=== PATIENT | female | born 1945 | race Caucasian/White ===

== ENCOUNTER → 2018-02-22 12:02 | Outpatient (CLI) | payer MEDICARE, SELFPAY ==
--- NOTE | 2018-02-22 | FLU_PTH ---
PATIENT: ANTONIO MALLORY LOC: CO U#:[id number] AGE/SX: 79/F ROOM: RE02/22/[address]: ABBEY Bajwa : 1945 BED: DIS: SPEC #: [id number] RECD: 02/22/18 16:00 STATUS: NICOLAS REQ #: [id number] TRU: 02/22/18 00:[address]: Trang Belcher NP DEPT: CYTOLOGY RECD BY: Adelaida Barajas ENTERED: 02/23/18 08:23 SP TYPE: Fluid OTHR DR: JR Sears Tissues: Urine Procedures: Pap Stain (control) Special Stain Group II Surgery Specimen Level IV Cytospin Fluid Comments: @ Originally on account #[id number] Req #[id number] HEADER OPERATION: Not noted PRE-OP DIAGNOSIS: Hematuria TISSUE SUBMITTED: Urine for cytology DIAGNOSIS CYTOLOGY Urine for cytology (cytospin): Atypical urothelial cells noted, suspicious for malignancy. SJ:pat 02/24/18 COMMENT Clinical correlation and appropriate follow up are necessary. Please make reference to previous specimen ([id number]) bladder tissue, biopsy with diagnosis of fragment of urothelial mucosa with focal epithelial hyperplasia and trigone, biopsy with diagnosis of fragment of urothelial mucosa with chronic inflammation and changes consistent with cystitis, cystica glandularis and focal calcification and focal epithelial hyperplasia. Case has been reviewed in consultation with Dr. Currie who concurs with the above diagnosis. IDC:AM CYTOLOGY STUDY Slides are reviewed. CYTOLOGY GROSS Received is 70 ml of isaías cloudy fluid labeled with the patient's name and and designated per the requisition as urine. Submitted for cytology preparation. /LAMINE:harley 02/23/18 TC:5 CPT: 56324
--- NOTE | 2018-02-22 12:07 | CT_ITS ---
STUDY: CT ABDOMEN AND PELVIS WITHOUT CONTRAST REASON FOR EXAM: Female, 72 years old. Right lower abdomen and right flank pain x2 weeks. History of stones. Prior appendectomy, cholecystectomy and BETTY/BSO. RADIATION DOSAGE (If Supplied By Facility): CTDIvol = ( 23.08 ) mGy, DLP = ( 1141.77 ) mGycm TECHNIQUE: Transaxial images were obtained from the dome of the diaphragm to the symphysis pubis without oral contrast, and without intravenous contrast. Sagittal and coronal images were reconstructed. Individualized dose optimization techniques were used for this CT. COMPARISON: None. FINDINGS: The visualized lung bases are unremarkable. The visualized portions of the heart are within normal limits. Diffuse fatty infiltration of the liver. Postsurgical absence of the gallbladder. Normal spleen. Normal pancreas. Normal bilateral adrenal glands. Right kidney: 8.3 mm nonobstructing stone in lower pole. 2 mm nonobstructing stones numbering approximately 5. 5 mm linear nonobstructing calculus in the lower pole. Left kidney: 8 mm stone in the left renal pelvis mild haziness of the fat around the left renal pelvis. 8mm at least 7 nonobstructing calculi in the left kidney. They are approximately 2 mm in diameter. Normal visualized stomach. Normal small intestine. Normal colon. The appendix is not visualized due to postsurgical absence. Normal abdominal aorta. Normal inferior vena cava. Normal retroperitoneum. Normal urinary bladder. Normal abdominal wall. T10 benign vertebral body hemangioma. Pronounced L5-S1 disc space height narrowing and mild disc space height narrowing at L3-L4 and L4-L5 disc space levels. No acute osseous abnormality. CT/Abdomen/Pelvis without Cont IMPRESSION: 1. 8 mm stone in the left renal pelvis without hydronephrosis. There is, however, mild haziness of the fat around the left renal pelvis. 2. Multiple nonobstructing calculi in both kidneys. The dominant calculus in the right kidney measures 8.3 mm and is located in the lower pole. The dominant stone in the left kidney is in the left renal pelvis. All the other stones in the left kidney are approximately 2 mm in size. 3. T10 benign vertebral body hemangioma. 4. Pronounced L5-S1 disc space height narrowing and mild disc space narrowing of L3-L4 and L4-L5 disc space levels. Electronically Signed: Nadeem Aguilar MD at 12:39 EDT , Service support ,
[2018-02-22 18:02] LABS: Cytology, Body Fluid / CSF SEE PATHOLOGY REPORT
== END ==
PROVIDERS: Family Provider Physician Assistant; PCP Physician Assistant; Visit Provider Nurse Practitioner Adult Health
DX: N20.0 Calculus of kidney (principal); R31.9 Hematuria, unspecified
CPT/HCPCS: 74176; 88108; 88305; 88313

== ENCOUNTER 2018-03-23 12:48 | Day surgery (SDC) | payer MEDICARE, SELFPAY ==
[2018-03-23 13:30] VITALS: BP 150/91; PULSE 74; RESP 16; TEMP 36.8; O2SAT 97; BMI 33.4
[2018-03-23 13:41] LABS: Bedside Glucose 94 mg/dL (70-110)
[2018-03-23] MEDS: Cefazolin 2 GM in 0.9% Normal Saline 100 ML IV (16:33)
--- NOTE | 2018-03-23 17:28 | PCM.DC.URO ---
Discharge Diet: Light diet - advance as tolerated Discharge Activity: Return to Normal Activity Call your doctor if your incision/area has: Continuous Slow Oozing, Sudden Increased Bleeding, Increased Pain/ Swelling, Increased Redness, Foul Smelling Discharge, Swelling at the incision site Allergies/Adverse Reactions: Allergies propoxyphene [From Darvon] Allergy (Verified 03/16/18 09:42) Swelling Sulfa (Sulfonamide Antibiotics) Allergy (Verified 03/16/18 09:42) Swelling Medications to take at Discharge Acetaminophen [Tylenol Extra Strength] 500 - 1,000 mg PO Q6H PRN PRN 03/10/17 Apixaban [Eliquis] 5 mg PO BID 03/10/17 Glipizide [Glucotrol Xl] 10 mg PO QHS 03/10/17 Hydrochlorothiazide 25 mg PO DAILY 03/10/17 Lactose-Reduced Food [Protein Nutritional Shake] 414 ml PO PRN PRN 03/10/17 Lutein 6 mg PO DAILY 03/10/17 Multivit with Calcium,Iron,Min [Multiple Vitamins For Women] 1 each PO DAILY 03/10/17 Insulin Glargine [Lantus (BKC)] 15 units SC QHS 03/16/18 Losartan Potassium [Cozaar] 12.5 mg PO DAILY 03/16/18 Metformin(XR) [Glucophage Xr] 500 mg PO BID 03/16/18 Propafenone HCl [Propafenone HCl ER] 150 mg PO BID 03/16/18 Primary Care Physician: Selena Calderon PA [Primary Care Provider] - Test Results: Test results from this visit will be discussed in further detail at your follow-up appointment, if applicable. Please Follow Up With: Bony Short MD When: in 2 weeks, please call to make an appointment.
--- NOTE | 2018-03-23 17:31 | PCM.OPRPT ---
Problem List (1) Calculus of left transplanted kidney Status: Acute (2) Calculus of left kidney Status: Acute (3) Calculus of left kidney Status: Acute Report of Operation Date of Procedure: 03/23/18 Pre-Operative Diagnosis: Left extracorporeal shockwave lithotripsy, left renal calculi in the renal pelvis Post-Operative Diagnosis: Same Surgery/Procedure Performed:: Left extracorporeal shockwave lithotripsy Description of Surgical Findings:: 72-year-old female is been seen blood on off-and-on and she has a stone in the left UPJ of the kidney she does not report any pain but she has been seeing urine with blood in it off and on so today we are treat the stone in the left UPJ suspect that this is the cause of the bleeding off and on. Procedure was taken back to the operating room after smooth induction of general anesthesia she was placed supine on the table the stone in the left UPJ of the left kidney was then put in the F2 focal point of the lithotripter machine we then delivered a total of 3000 shockwaves to the stone at the end of the treatment the stone did change we could still see fragments in the kidney no stent was placed and the patient anesthetic was reversed is taken at the PACU in good condition by to see her back in a few weeks with an x-ray. Type of Anesthesia:: General Drains: none - Admit VTE Documentation VTE Present on Admission: No VTE Mechan Device Prophylaxis: SCD's
[2018-03-23 17:37] VITALS: BP 150/91; BP 157/93; PULSE 66; RESP 16; TEMP 36.3; O2SAT 93
[2018-03-23 17:45] VITALS: BP 150/91; BP 151/84; PULSE 71; RESP 16; O2SAT 92
[2018-03-23 18:00] VITALS: BP 150/91; BP 152/86; PULSE 61; RESP 18; TEMP 36.6; O2SAT 94
[2018-03-23 18:00] LABS: Bedside Glucose 66 mg/dL (70-110)
[2018-03-23] MEDS: Acetaminophen 325 MG Tablet 650 MG PO (18:16)
[2018-03-23 19:20] VITALS: BP 145/73; BP 150/91; PULSE 68; RESP 18; TEMP 36.5; O2SAT 94
== END 2018-03-23 19:25 | disposition home or self-care (01) ==
LOC: SDC 12:48 → AC 12:49
PROVIDERS: Family Provider Physician Assistant; PCP Physician Assistant; Visit Provider Urology
PROC: (CPT 50590; principal; 2018-03-23 14:20)
DX: N20.1 Calculus of ureter (principal); Z87.442 Personal history of urinary calculi; E11.9 Type 2 diabetes mellitus without complications; I48.91 Unspecified atrial fibrillation; I10 Essential (primary) hypertension; E78.5 Hyperlipidemia, unspecified; E66.9 Obesity, unspecified; Z68.33 Body mass index [BMI] 33.0-33.9, adult; Z79.01 Long term (current) use of anticoagulants; Z79.4 Long term (current) use of insulin; Z79.899 Other long term (current) drug therapy; Z80.51 Family history of malignant neoplasm of kidney
CPT/HCPCS: 00873; 50590; 82962; J7120; J2405

== ENCOUNTER → 2018-04-12 10:12 | Outpatient (CLI) | payer MEDICARE, SELFPAY ==
--- NOTE | 2018-04-12 10:21 | RAD_ITS ---
STUDY: X-RAY - ABDOMEN/PELVIS REASON FOR EXAM: Female, 72 years old. Left-sided kidney stones TECHNIQUE: Two AP supine views of the abdomen and pelvis. COMPARISON: 02/16/2017 FINDINGS: Normal visualized lung bases. There is an unremarkable bowel gas pattern. There is no demonstrated free abdominal air. In the region of the right lower pole renal shadow, there is a nephrolith measuring 1.1 cm with similar finding in the left lower pole renal shadow measuring 1.5 cm. The visualized liver, spleen and kidneys are grossly normal in size and morphology. Normal soft tissue structures. There are diffuse degenerative changes of the visualized lumbar spine. RAD/Abdomen Single View IMPRESSION: Bilateral nephrolithiasis as detailed above; mostly unchanged since plain film in 2016. Electronically Signed: Fernando Basilio DO at 7:57 EDT Tel , Service support ,
== END ==
PROVIDERS: Family Provider Physician Assistant; PCP Physician Assistant; Visit Provider Nurse Practitioner Adult Health
DX: N20.0 Calculus of kidney (principal)
CPT/HCPCS: 74018

== ENCOUNTER → 2019-02-28 16:32 | Outpatient (CLI) | payer MEDICARE, SELFPAY ==
--- NOTE | 2019-02-28 16:45 | RAD_ITS ---
STUDY: X-RAY - ABDOMEN/PELVIS REASON FOR EXAM: Female, 73 years old. Renal stones bilaterally TECHNIQUE: 2 views COMPARISON: April 12, 2018 FINDINGS: There is an unremarkable bowel gas pattern. There is no demonstrated free abdominal air. Persistent calcifications are noted over the lower pole of the kidneys. Stable surgical clips in the right upper quadrant. Normal soft tissue structures. Normal visualized osseous structures. RAD/Abdomen Single View IMPRESSION: Persistent lower pole renal calculi are noted bilaterally. Electronically Signed: Bharath Augustine DO at 22:20 EDT Tel [phone], Service support ,
== END ==
PROVIDERS: Family Provider Physician Assistant; PCP Physician Assistant; Referring Provider Nurse Practitioner Adult Health; Visit Provider Nurse Practitioner Adult Health
DX: N20.0 Calculus of kidney (principal)
CPT/HCPCS: 74018

== ENCOUNTER 2019-04-05 11:03 | Day surgery (SDC) | payer MEDICARE, SELFPAY ==
[2019-04-05] VITALS (10 sets, daily range): BP systolic 118–150; BP diastolic 70–84; PULSE 58–79; RESP 16–20; TEMP 36.3–36.9; O2SAT 59–98; BMI 32.3; BMI 32.4
[2019-04-05] MEDS: Lactated Ringers 1,000 ML 75 ML IV ×2 (11:48→16:30)
[2019-04-05 11:55] LABS: Bedside Glucose 143 mg/dL (70-110)
[2019-04-05] MEDS: Ciprofloxacin 400 MG/200 ML BAG 200 MG IV (12:33)
--- NOTE | 2019-04-05 16:33 | PCM.OPRPT ---
Report of Operation Date of Procedure: 04/05/19 Pre-Operative Diagnosis: Left lower pole 15 mm kidney stone Post-Operative Diagnosis: Same Surgery/Procedure Performed:: Left retrograde pyelogram, left ureteroscopy placement of access sheath, percutaneous access and establishment of a nephrostomy tube tract a kidney stone, left percutaneous nephrostolithotomy for a 15 mm lower pole stone. Placement of left nephrostomy tube and nephrostogram. Description of Surgical Findings:: 73-year-old female who had a stone in the lower pole the left kidney the stone is been treated in the past with continues to be difficult to clear she is been having pain on the left side off and on. We talked about options of management consider observation, ureteroscopy, percutaneous removal, shockwave lithotripsy. She is already tried shockwave lithotripsy once with no clearance of the fragment and poor breakage so we will proceed with a percutaneous removal of the stone. 73-year-old female taken back to the operating room at the smooth induction of general anesthesia she was placed supine on the table we then placed her in dorsolithotomy position went into the bladder with a 21 [place] rigid cystourethroscope the urethra was normal she did have a fairly atrophic vaginal area cystocele was noted, I then looked inside the bladder there was no tumors or stones within the bladder I identified the left ureteral orifice advanced a wire up the left ureter with a wire and then over the wire advanced a access sheath and went up quite easily under direct visualization that the access sheath in place in the next to the access to the put a 14 [place] catheter into the bladder patient was then transferred to the cot and then and then she was then positioned facedown on the table for a percutaneous approach the left kidney. I then performed a retrograde ureteroscopy through the access sheath going to the actually that was placed after blood prepping and draping the patient's left flank area. This allowed me to find the stone I then retroflexed to find the stone was very difficult lower pole location then using triangulation technique I try to get access to the stone and looked like it had good axis I put the 20 cm 18-gauge needle with a stylette and appeared to get access to the kidney and fluoroscopy and under ureteroscopy I could see the wire passed the stone at that there was a good access so I made an incision in the skin balloon dilated dilated the tract with a 20 [place] balloon dilator went inside and was certainly in the lower pole calyx however after further inspection it looked like it was in a parallel lower pole calyx and there was impossible to reach the stone through this access. Therefore left the wire in place to keep secure access to the kidney but I went to alternate site and usable bull's-eye technique at this point we tried multiple times to get to the correct axis to the stone but kept on getting in the wrong access finally after at least an hour of trying decided to give 1 more try to use the bull's-eye technique to get the needle lined up right on the stone and then went back to 0 and then approach the stone and then actually could feel the stone on the needle and then advanced a wire through the stylette of the 18-gauge needle wire went right to the stones I balloon dilated down to this point with a 20 [place] Bard renal balloon dilator and over the balloon dilator in place access sheath right to the stone I went in with the nephroscope and I was right on the stone I then performed ultrasonic lithotripter and the stone was able to remove the stone entirely I was satisfied with the treatment looked under fluoroscopy kidney cannot see any more fragments since this is, direct axis with no real good access to the collecting system I just pulled out the nephrostomy tube there was minimal bleeding from the site and then in the prior access site I advanced a 18 [place] catheter at work to the nephrostomy tube advances put this in the renal pelvis did not nephrostogram filled up the entire kidney and then put this to gravity drainage we secured the nephrostomy tube took out the access sheath left the catheter in place patient was then flipped over prone extubated taken back to PACU good condition was able to get rid of the stone but the [place] took a long time so was withdrawn out case because of this otherwise the patient was stable with minimal blood loss. Type of Anesthesia:: General Drains: nephostomy tube and bennett - Admit VTE Documentation VTE Present on Admission: No VTE Mechan Device Prophylaxis: SCD's
[2019-04-05 17:11] LABS: Bedside Glucose 177 mg/dL (70-110)
[2019-04-05] MEDS: Ketorolac 15 MG/ML Vial IV (17:43)
[2019-04-05 18:46] LABS: Anion Gap 6 (5-15); BUN 16 mg/dL (7-18); BUN/Creat Ratio 18.3 RATIO (10-20); Calcium,Total 8.9 mg/dL (8.5-10.1); Chloride 106 mmol/L (98-107); Creatinine, Serum 0.87 mg/dL (0.55-1.02); EST Glomerular Filtration Rate 68 mL/min (>60); Est Glom Filt Rate - Afr Amer 82 mL/min (>60); Estimated Creatinine Clearance 61.98 ml/min; Glucose 200 mg/dL (74-106); Potassium 3.9 mmol/L (3.5-5.1); Sodium Level 139 mmol/L (136-145)
[2019-04-05] MEDS: 0.9% Normal Saline 1,000 ML 75 ML IV (19:06)
[2019-04-05] MEDS: Docusate Sodium 100 MG Capsule PO (23:10)
[2019-04-05] MEDS: Propafenone 150 MG Tablet PO (23:13)
[2019-04-06] MEDS: Ciprofloxacin 400 MG/200 ML BAG 200 MG IV ×2 (00:54→15:17)
[2019-04-06] MEDS: Acetaminophen 325 MG Tablet PO ×2 (01:04→15:17)
[2019-04-06 05:30] LABS: Hematocrit 36.7 % (37-47); Mean Corp Hgb Conc 32.7 g/dL (32-36); Mean Corpuscular Hgb 29.9 pg (27.0-32.0); Mean Corpuscular Volume 91.5 fL (81-99); Mean Platelet Vol. 10.6 fl (6.2-12.0); Platelet Count 189 K/mm3 (150-450); RBC Distribution Width CV 11.9 % (11.6-14.6); RBC Distribution Width SD 40.1 fl (35.1-43.9); Red Blood Count 4.01 M/mm3 (4.2-5.4); White Blood Count 9.9 K/mm3 (4.4-11.0)
--- NOTE | 2019-04-06 07:18 | PCM.PROGNOTE ---
Subjective: Status post percutaneous removal of lower pole kidney stones she is doing well the nephrostomy tube is nice and clear with no blood urine is also clear from the Ford catheter. This morning we can remove the Ford catheter plug nephrostomy tube, I will be by at lunch if she is doing well we will remove the nephrostomy tube and should be able to go home later today with out of the nephrostomy tube. - Physical Exam General: Alert, Oriented x3, Cooperative HEENT: Atraumatic, PERRLA, EOMI, Normocephalic Neck: Supple, No JVD, Negative Carotid Bruits Lungs: Clear to auscultation, Normal air movement Cardiovascular: Regular rate, No murmurs Abdomen: Bowel Sounds Present, Soft, Non Tender Extremities: No edema, Capillary Refill Less than 3 Seconds Skin: No rashes, No breakdown Musculoskeletal: No Tenderness to Palpation of Joints or Extremities Neurological: Cranial nerves II-XII grossly intact Psych/Mental Status: Normal Affect, Appropriate Vital Signs Temp Pulse Resp BP Pulse Ox 97.6 F L 67 20 H 128/76 H 94 04/05/19 21:57 04/05/19 21:57 04/05/19 21:57 04/05/19 21:57 04/05/19 21:57 Oxygen Flow Rate (L/min) 1.5 Oxygen Delivery Method Nasal Cannula Weight: 99.5 kg Body Mass Index (BMI) 32.3 Finger Stick Blood Glucose 66 Intake and Output for Last 24 Hours 04/04/19 04/05/19 04/06/19 23:59 23:59 23:59 Intake Total 2612.5 / 3512.5 1535 / 1535 Output Total 320 / 645 325 / 325 Balance 2292.5 / 2867.5 1210 / 1210 Laboratory Tests Past 24 Hrs 04/05/19 04/06/19 16:28 05:05 WBC 9.9 RBC 4.01 L Hgb 12.0 Hct 36.7 L MCV 91.5 MCH 29.9 MCHC 32.7 RDW Std Deviation 40.1 RDW Coeff of Yina 11.9 Plt Count 189 MPV 10.6 Sodium 139 Potassium 3.9 Chloride 106 Carbon Dioxide 27.0 Anion Gap 6 BUN 16 Creatinine 0.87 Estim Creat Clear Calc 61.98 Est GFR (MDRD) Af Amer 82 Est GFR (MDRD) Non-Af 68 BUN/Creatinine Ratio 18.3 Glucose 200 H Calcium 8.9 POC Glucose 04/05/19 04/05/19 17:05 11:33 POC Glucose 177 H 143 H Medical Necessity - Tobacco Use Smoking Status: Never smoker Tobacco Use: Non-smoker Assessment/Plan All Active Problems Calculus of left transplanted kidney (Acute) Calculus of left kidney (Acute) Calculus of left kidney (Acute) Plan to discharge later home today.
--- NOTE | 2019-04-06 07:23 | PCM.DC.URO ---
Discharge Diet: No Restrictions Discharge Activity: Return to Normal Activity, May Not Drive - for 2 days. Additional Activity Instructions:: f you have a catheter, remove on ___. If you have any problems after catheter is removed, call [phone] and ask for your doctor to be paged. Please be aware that pain medications may cause nausea. You should typically eat light foods as you take your pain medication. Pain medication may cause constipation, if this is a problem for you, please discuss with your doctor. Call your doctor if your incision/area has: Sudden Increased Bleeding Call your doctor if you observe: Fever of 101 or Higher Allergies/Adverse Reactions: Allergies propoxyphene [From Darvon] Allergy (Verified 04/05/19 11:21) Swelling Sulfa (Sulfonamide Antibiotics) Allergy (Verified 04/05/19 11:21) Swelling Medications to take at Discharge Apixaban [Eliquis] 5 mg PO BID 03/10/17 Glipizide [Glucotrol Xl] 10 mg PO QHS 03/10/17 Hydrochlorothiazide 12.5 mg PO DAILY 03/10/17 Lutein 6 mg PO DAILY 03/10/17 Multivit with Calcium,Iron,Min [Multiple Vitamins For Women] 1 each PO DAILY 03/10/17 Losartan Potassium [Cozaar] 25 mg PO DAILY 03/16/18 Propafenone HCl [Propafenone HCl ER] 150 mg PO BID 03/16/18 metFORMIN (XR) [Glucophage Xr] 500 mg PO BID 03/16/18 Rosuvastatin Calcium [Crestor] 10 mg PO MOWEFR 03/22/19 metFORMIN (XR) [Glucophage Xr] 500 mg PO TID 03/22/19 Ciprofloxacin [Cipro] 500 mg PO BID #10 tab 04/06/19 The following prescriptions were given: Ciprofloxacin [Cipro] 500 mg PO BID #10 tab Transmission Status: Sent to [facility] Primary Care Physician: Selena Calderon PA [Primary Care Provider] - Test Results: Test results from this visit will be discussed in further detail at your follow-up appointment, if applicable. Please Follow Up With: Bony Short MD When: in 2 weeks, please call to make an appointment.
[2019-04-06] MEDS: 0.9% Normal Saline 1,000 ML 75 ML IV (09:41)
[2019-04-06] MEDS: Docusate Sodium 100 MG Capsule PO (09:45)
[2019-04-06] MEDS: Propafenone 150 MG Tablet PO (09:45)
[2019-04-06] MEDS: Pantoprazole Sodium 40 MG Tablet PO (09:45)
[2019-04-06] MEDS: Multivitamins,Ther W-Minerals Tablet 1 TABLET PO (09:45)
[2019-04-06] MEDS: oxyCODONE 5 MG Tablet PO (10:04)
[2019-04-06] MEDS: metFORMIN (XR) 500 MG Tablet PO ×2 (10:05→18:01)
[2019-04-06 10:18] VITALS: BP 122/73; PULSE 55; RESP 18; TEMP 36.6; O2SAT 97
[2019-04-06 10:30] LABS: Bedside Glucose 127 mg/dL (70-110)
--- NOTE | 2019-04-06 11:33 | CASEMGMT ---
As per preadmission reporting manager, pt has LW/POA but is unable to bring in the documents. She stated her is POA. KAYLEEN Liao
[2019-04-06 15:01] VITALS: BP 119/68; PULSE 60; RESP 18; TEMP 36.8; O2SAT 94
[2019-04-06] MEDS: Losartan Potassium 25 MG Tablet PO (15:06)
[2019-04-06] MEDS: hydroCHLOROthiazide 12.5mg 12.5 MG PO (15:06)
[2019-04-06 19:42] VITALS: BP 127/66; PULSE 66; RESP 18; TEMP 37; O2SAT 94
--- NOTE | 2019-04-06 19:43 | NURSING ---
This nurse has taken old drsg off x2 to old neprostomy tube site. Large amt of clr/pale yellow drainage. This nurse reported back to Dr. Short and he said this was okay to have that much drainage and it was okay to discharge pt.
== END 2019-04-06 19:55 | disposition home or self-care (01) ==
LOC: SDC 11:05 → AC 11:07 → MS3 17:05
PROVIDERS: Family Provider Physician Assistant; PCP Physician Assistant; Referring Provider Urology; Visit Provider Urology
PROC: (CPT 50080; principal; 2019-04-05 12:35)
DX: N20.0 Calculus of kidney (principal); R31.29 Other microscopic hematuria; R10.32 Left lower quadrant pain; Z87.442 Personal history of urinary calculi; I48.91 Unspecified atrial fibrillation; I10 Essential (primary) hypertension; E78.5 Hyperlipidemia, unspecified; E11.39 Type 2 diabetes mellitus with other diabetic ophthalmic complication; H40.9 Unspecified glaucoma; E66.9 Obesity, unspecified; Z68.33 Body mass index [BMI] 33.0-33.9, adult; Z94.0 Kidney transplant status; Z79.4 Long term (current) use of insulin; Z79.84 Long term (current) use of oral hypoglycemic drugs; Z79.01 Long term (current) use of anticoagulants; Z79.899 Other long term (current) drug therapy
CPT/HCPCS: 50080; 50432; 52334; 36415; 76000; 80048; 82962; 85027; J7030; J7120; C1758; C1769; J0744; J2405

== ENCOUNTER → 2019-08-17 12:54 | Outpatient (CLI) | payer MEDICARE, SELFPAY ==
[2019-04-05 11:28] VITALS: BMI 32.3
--- NOTE | 2019-08-17 13:00 | RAD_ITS ---
STUDY: X-RAY - ABDOMEN/PELVIS REASON FOR EXAM: Female, 73 years old. KIDNEY STONES. TECHNIQUE: Single AP view of the abdomen / pelvis. COMPARISON: 02/28/2019 FINDINGS: Normal visualized lung bases. There is an unremarkable bowel gas pattern. Small calcific opacities overlying both kidneys consistent with bilateral renal stones improved when compared with prior study. No definite ureteral stone. Status post cholecystectomy. Normal visualized osseous structures. RAD/Abdomen Single View IMPRESSION: Improved bilateral renal stones. No definite ureteral stone. Electronically Signed: Nelson Bolaños MD at 9:23 EST Tel , Service support ,
== END ==
LOC: RAD 12:55
PROVIDERS: PCP Physician Assistant; Referring Provider Urology; Visit Provider Urology
DX: N20.0 Calculus of kidney (principal)
CPT/HCPCS: 74018

== ENCOUNTER → 2020-04-18 13:32 | Outpatient (CLI) | payer MEDICARE, SELFPAY ==
[2019-04-05 11:28] VITALS: BMI 32.3
--- NOTE | 2020-04-18 13:40 | RAD_ITS ---
STUDY: X-RAY - ABDOMEN/PELVIS REASON FOR EXAM: Female, 74 years old. Right-sided kidney stone. Current discomfort. TECHNIQUE: Single AP view of the abdomen / pelvis. COMPARISON: 08/17/2019. FINDINGS: The lung bases are not included. There is an unremarkable bowel gas pattern. There is no demonstrated free abdominal air. The visualized liver, spleen and kidneys are grossly normal in size and morphology. Cholecystectomy clips are again seen in the right upper quadrant. There are multiple calcifications overlying the right lower kidney. There is now a calcification in the region of the renal hilum not previously noted. Small calcifications are also seen in the region of the left kidney which appears stable. Stable phleboliths. There is no osseous changes. RAD/Abdomen Single View IMPRESSION: 1. Question calcification in the region of the right UPJ, not previously seen. 2. Otherwise stable bilateral renal calculi. Electronically Signed: Charles Carrizales DO at 20:46 EDT Tel [phone], Service support ,
== END ==
PROVIDERS: PCP Physician Assistant; Referring Provider Nurse Practitioner Adult Health; Visit Provider Nurse Practitioner Adult Health
DX: N20.0 Calculus of kidney (principal)
CPT/HCPCS: 74018

== ENCOUNTER → 2021-06-03 10:59 | Outpatient (CLI) | payer MEDICARE, SELFPAY ==
--- NOTE | 2021-06-03 11:10 | RAD_ITS ---
STUDY: X-RAY - ABDOMEN/PELVIS REASON FOR EXAM: Female, 75 years old. CALCULUS OF KIDNEY TECHNIQUE: 2 frontal images of the abdomen were obtained COMPARISON: CT dated 02/22/2018 and radiograph dated 04/18/2020 FINDINGS: Normal visualized lung bases. There is an unremarkable bowel gas pattern. There is no demonstrated free abdominal air. There are surgical clips within the right upper quadrant consistent with prior cholecystectomy. There are bilateral calcific densities within the expected region of the kidneys the largest measuring up to 10.3 mm within the region of the lower pole of the right kidney. There are calcified phleboliths in the pelvis. Normal visualized osseous structures. RAD/Abdomen Single View IMPRESSION: Bilateral calcifications within the expected region of the kidneys, suggestive of underlying calculi, measuring up to 10.3 mm on the right. Electronically Signed: Lyly Solano MD at 13:50 EST Tel , Service support ,
== END ==
PROVIDERS: PCP Physician Assistant; Referring Provider Urology; Visit Provider Urology
DX: N20.0 Calculus of kidney (principal)
CPT/HCPCS: 74018